=== PATIENT | male | born 1945 | race Caucasian/White ===

== ENCOUNTER → 2020-10-07 | Day surgery (SDC) | payer MEDICARE ==
[2020-10-05 09:44] LABS: BASOPHILS % 0.8 % (0.0-1.0); EOSINOPHILS # (AUTO) 0.2 (0.0-0.4); EOSINOPHILS % 3.2 % (0.0-6.0); HEMATOCRIT 39.4 % (38.2-49.6); HEMOGLOBIN 13.2 g/dL (14.0-18.0); LYMPHOCYTES # (AUTO) 1.4 (1.0-3.2); LYMPHOCYTES % 28.3 % (18.0-39.1); MEAN CORPUSCULAR HEMOGLOBIN 30.2 pg (28-32); MEAN CORPUSCULAR HGB CONC 33.5 g/dL (31-35); MEAN CORPUSCULAR VOLUME 90.2 fL (81-99); MONOCYTES # (AUTO) 0.4 (0.2-0.8); NEUTROPHILS % 60.5 % (38.7-80.0); PLATELET COUNT 254 x10e3/uL (140-360); RED BLOOD COUNT 4.37 x10e6/uL (4.3-5.7); RED CELL DISTRIBUTION WIDTH 12.3 % (11.7-14.4)
[2020-10-05 10:25] LABS: INR 0.91; PROTHROMBIN TIME 12.8 seconds (11.9-14.5)
[~2020-10-07] MED LIST: ATORVASTATIN CA20 MG PO; BACLOFEN10 MG PO; BUPIVACAINE HCL 0.5% INJ 30 ML VIAL INJ ONE; BUPROPION XL150 MG PO; CEFAZOLIN SOD 1 GM/NS 50ML 100 ML IV ONE; CLOPIDOGREL75 MG PO; DEXAMETHASONE SOD PHOS INJ 4 MG/ML VIAL ONE; EQUATE ALLERGY PO; HYDROCODON-ACE1 EA12 PO; KETOROLAC TROMETHAMINE 30 MG/ML VIAL ONE; LATANOPROST2.5 ML OS; LEVOTHYROXINE50 MCG PO; LISINOPRIL10 MG PO; NASAL SPRAY30 M1; NEXIUM40 MG PO; ONDANSETRON HCL INJ 2MG/ML 2ML 2 MG/ML VIAL ONE; POVIDONE IODINE 0.05% 0.05 % ML PO ONE; PROPOFOL IV EMULSION 10 MG/ML 20 ML VIAL ONE; SEVOFLURANE INHAL SOLN 250 ML PEN BTL ONE; TIMOLOL MALEATE5 ML OS
[2020-10-07 09:10] VITALS: BP 154/86
== END | disposition home or self-care (01) ==
LOC: OR 05:34
PROVIDERS: ATTEND Neurological Surgery
DX: G56.02 Carpal tunnel syndrome, left upper limb (principal); M19.90 Unspecified osteoarthritis, unspecified site; E78.5 Hyperlipidemia, unspecified; I10 Essential (primary) hypertension; E03.9 Hypothyroidism, unspecified; K21.9 Gastro-esophageal reflux disease without esophagitis; I25.10 Atherosclerotic heart disease of native coronary artery without angina pectoris; Z01.810 Encounter for preprocedural cardiovascular examination; Z01.812 Encounter for preprocedural laboratory examination; Z01.818 Encounter for other preprocedural examination; Z20.822 Contact with and (suspected) exposure to COVID-19; Z79.82 Long term (current) use of aspirin; Z79.02 Long term (current) use of antithrombotics/antiplatelets
CPT/HCPCS: 36415; 64721; 71046; 85025; 85610; 85730; 93005; J0690; J1100; J1885; J2405; J2704; U0002

== ENCOUNTER → 2021-09-01 | Day surgery (SDC) | payer MEDICARE ==
[2021-08-30 11:53] LABS: BASOPHILS % 0.7 % (0.0-1.0); EOSINOPHILS # (AUTO) 0.2 (0.0-0.4); EOSINOPHILS % 3.9 % (0.0-6.0); HEMOGLOBIN 13.8 g/dL (14.0-18.0); LYMPHOCYTES # (AUTO) 1.6 (1.0-3.2); LYMPHOCYTES % 30.5 % (18.0-39.1); MEAN CORPUSCULAR HEMOGLOBIN 30.6 pg (28-32); MEAN CORPUSCULAR HGB CONC 33.7 g/dL (31-35); MEAN CORPUSCULAR VOLUME 90.9 fL (81-99); MONOCYTES # (AUTO) 0.4 (0.2-0.8); MONOCYTES % 7.7 % (4.4-11.3); NEUTROPHILS % 56.8 % (38.7-80.0); PLATELET COUNT 235 x10e3/uL (140-360); RED BLOOD COUNT 4.51 x10e6/uL (4.3-5.7); RED CELL DISTRIBUTION WIDTH 12.8 % (11.7-14.4)
[2021-08-30 12:14] LABS: INR 0.93; PARTIAL THROMBOPLASTIN TIME 24.7 seconds (23.8-35.5); PROTHROMBIN TIME 13.3 seconds (11.9-14.5)
[~2021-09-01] MED LIST changes: +ACETAMINOPHEN 1000 MG/100 ML 100 ML IV ONE; +ARTIFICIAL TEAR15 ML OD; +ASPIRIN81 MG PO; -CEFAZOLIN SOD 1 GM/NS 50ML 100 ML IV ONE; -DEXAMETHASONE SOD PHOS INJ 4 MG/ML VIAL ONE; +GLYCOPYRROLATE INJ 0.2 MG/ML VIAL ONE; -KETOROLAC TROMETHAMINE 30 MG/ML VIAL ONE; +LATANOPROST2.5 ML OP; +LIDOCAINE HCL 2% LOCAL INJ 5 ML SDV VIAL INJ ONE; +METOPROLOL SUCC25 MG PO; +PLAVIX75 MG PO; +SODIUM CHLORIDE 0.9% 50ML 100 ML ONE
[2021-09-01 10:20] VITALS: BP 146/89
== END | disposition home or self-care (01) ==
LOC: OR 06:30
PROVIDERS: ATTEND Neurological Surgery
DX: G56.01 Carpal tunnel syndrome, right upper limb (principal); I10 Essential (primary) hypertension; I25.10 Atherosclerotic heart disease of native coronary artery without angina pectoris; E78.5 Hyperlipidemia, unspecified; Z01.810 Encounter for preprocedural cardiovascular examination; Z01.812 Encounter for preprocedural laboratory examination; Z20.822 Contact with and (suspected) exposure to COVID-19; Z79.02 Long term (current) use of antithrombotics/antiplatelets; Z79.82 Long term (current) use of aspirin; Z79.899 Other long term (current) drug therapy; Z98.61 Coronary angioplasty status; Z87.891 Personal history of nicotine dependence
CPT/HCPCS: 36415; 64721; 85025; 85610; 85730; 93005; J0131; J0690; U0002; J2001; J2405